=== PATIENT | female | born 1955 | race Caucasian/White ===

== ENCOUNTER 2018-03-09 08:45 | Observation (INO) ==
[2018-03-09] MEDS ORDERED: Nitroglycerin 0.4 MG TAB.SUBL SL ONE (09:01)
[2018-03-09] MEDS ORDERED: Aspirin 81 MG TAB.CHEW PO ONE (09:01)
--- NOTE | 2018-03-09 09:12 | Emergency Department Note ---
Disposition Clinical Impression: Unstable angina Disposition: Admitted As Inpatient Condition: Good Referrals: Miriam Medeiros MD [Primary Care Provider] - Forms: ED Satisfaction Letter Chest Pain HPI - General Chief Complaint: ED Chest Pain Stated Complaint: chest pain Time Seen by Provider: 03/09/18 08:57 Source: patient, family Limitations: no limitations Vital Signs Reviewed: Yes Nursing Notes Reviewed: Yes - History of Present Illness HPI Narrative: 63-year-old female presents menstrual for chest pain. Onset around 2 AM. Woke from sleep. Located to the left side of her chest that radiates around into her left arm. She states the pain radiates down her left arm. She also admits to some nausea. No vomiting. Slight shortness of breath. No diaphoresis. No history of coronary disease. No history of any stents. Rates her pain a 4 out of 10. She describes it as a consistent sharp pain. She is recently been treated in the last week for sinus infection with Augmentin. She denies any long travels in a car plane. Pt is on Xarelto for prior DVT in right leg. Severity scale (1-10): 4 - Related Data Home Medications Medication Instructions Recorded Confirmed Atorvastatin Calcium [Lipitor] 20 mg PO DAILY 08/31/15 01/14/18 Calcium Carbonate/Vitamin D3 1 each PO BID 08/31/15 01/14/18 [Calcium 600+D Softgel] Carvedilol [Coreg] 25 mg PO BID 08/31/15 01/14/18 Inulin/Chromium Picolinate [Fiber 2 each PO BID 08/31/15 01/14/18 Gummies] Polyethylene Glycol 3350 [MiraLAX] 17 gm PO DAILY PRN 08/31/15 01/14/18 Ranitidine HCl [Zantac] 150 mg PO BID PRN 01/22/16 01/14/18 DULoxetine [Cymbalta] 30 mg PO DAILY 10/01/16 01/14/18 Fluticasone Propionate [Flovent 110 mcg IN BID PRN 11/21/17 01/14/18 Hfa] Multivitamin 1 tab PO DAILY 11/21/17 01/14/18 Previous Rx's Medication Instructions Recorded Clindamycin [Cleocin] 150 mg PO Q6HR #7 capsule 11/21/17 OxyCODONE Immed Rel [Roxicodone 5 5 mg PO Q4HR PRN 5 Days #20 tablet 11/21/17 MG] Rivaroxaban [Xarelto] 20 mg PO DAILY #30 tablet 12/01/17 Allergies Allergy/AdvReac Type Severity Reaction Status Date / Time hydrocodone Allergy Rash Verified 01/14/18 14:48 tape AdvReac Blister Uncoded 01/14/18 14:48 All systems ED: reviewed and negative except as stated. Constitutional: Reports: as per HPI Eyes: Reports: as per HPI ENT ED: Reports: as per HPI Cardiovascular: Reports: chest pain Respiratory: Reports: as per HPI Gastrointestinal: Reports: as per HPI Genitourinary: Reports: as per HPI Musculoskeletal: Reports: as per HPI Integumentary: Reports: as per HPI Neurological: Reports: as per HPI Psychiatric: Reports: as per HPI Endocrine: Reports: as per HPI Hematological/Lymphatic: Reports: as per HPI Allergic/Immunologic: Reports: as per HPI Chest Pain PMH - Past Medical History Medical history: Reports: arthritis, fibromyalgia, GERD, hyperlipidemia, hypertension, other Surgical history: Reports: cholecystectomy, hip replacement, knee replacement, other Psychiatric history: Reports: no psych history - Social History Smoking Status: Never smoker Alcohol use: Reports: none Drug use: Reports: none Physical Exam HEENT: Head atraumatic normocephalic. Pharynx clear with no exudates. Oral mucosa moist. Uvula midline. TMs clear bilaterally. Trachea midline. No lymphadenopathy. Heart: Regular rate and rhythm. Normal S1 and S2. No gallops, rubs, or murmurs. Lungs: Clear to auscultation bilaterally. No evidence of any rhonchi wheezing or rales. Abdomen: Soft nontender nondistended. Positive bowel sounds. No peritoneal signs. Extremities: No evidence of cyanosis clubbing or edema. Neuro: Cranial nerves II through XII grossly intact. No focal motor or sensory deficits. Speech is clear. Skin: Normal color. dry. Psych: normal mentation. - General Limitations: no limitations General appearance: alert - Head Head exam: atraumatic, normocephalic - Eye Eye exam: Present: normal appearance Course Vital Signs Temperature 98.4 F 03/09/18 08:55 Pulse Rate 107 03/09/18 08:55 Respiratory Rate 16 03/09/18 08:55 Blood Pressure 135/91 11/12/18 08:55 O2 Sat by Pulse Oximetry 96 03/09/18 08:55 Temperature 98.4 F 03/09/18 08:55 Pulse Rate 104 03/09/18 09:20 Respiratory Rate 16 03/09/18 09:20 Blood Pressure 126/81 03/09/18 09:20 O2 Sat by Pulse Oximetry 95 03/09/18 09:20 Oxygen Delivery Oxygen Delivery Room Air Chest Pain - MDM Narrative Medical decision making narrative: Workup in the ER did not show any abnormalities. CT of the chest was also negative for any PE. Troponin negative. ekg nondiagnostic CP free after nitro. admit for obs - Medical Records Medical records reviewed: Yes I reviewed the patient's medical records. - Lab Data Lab results reviewed: Yes I reviewed the patient's lab results. Result diagrams: 03/09/18 09:09 03/09/18 09:09 Lab Results 03/09/18 03/09/18 03/09/18 Range/Units 09:09 09:09 09:09 WBC 5.7 (4.3-11.1) K/mcL RBC 4.38 (3.82-4.97) M/mcL Hgb 12.6 (11.5-15.4) g/dL Hct 39.3 (35.3-44.9) % MCV 89.7 (83.0-100.0) fL MCH 28.8 (28.0-33.3) pg MCHC 32.1 (31.6-35.5) g/dL RDW 13.4 (11.5-14.5) % Plt Count 213 (140-400) K/mcL MPV 9.9 (9.4-12.4) fL Immature Gran % 0.4 (0-4) % Seg Neutrophils % 71.7 % Lymphocytes % 13.0 % Monocytes % 10.5 % Eosinophils % 3.7 % Basophils % 0.7 % Neutrophils # 4.1 (1.6-8.9) K/mcL Lymphocytes # 0.7 (0.6-4.6) K/mcL Monocytes # 0.6 (0.0-1.3) K/mcL Eosinophils # 0.2 (0.0-0.6) K/mcL Basophils # 0.0 (0.0-0.2) K/mcL PT 14.1 H (9.4-12.1) Seconds INR 1.3 APTT 37.2 H (26.0-36.0) Seconds D-Dimer 1069 H (0-500) ng/mLFEU Sodium 140 (136-145) mEq/L Potassium 4.0 (3.5-5.1) mEq/L Chloride 107 (98-107) mEq/L Carbon Dioxide 24 (23-29) mEq/L BUN 8 (8-23) mg/dL Creatinine 0.65 (0.60-1.20) mg/dL Est GFR ( Amer) > 60 (> 60) Est GFR (Non-Af Amer) > 60 (> 60) BUN/Creatinine Ratio 12 (6-26) Glucose 114 H (70-105) mg/dL Calculated Osmolality 289 (280-300) Calcium 9.5 (8.6-10.3) mg/dL Troponin I < 0.03 (< 0.04) ng/mL - Radiology Data Radiology results reviewed: Yes I reviewed the patient's radiology results. - EKG Data EKG attestation: Yes I reviewed and interpreted this EKG. EKG results narrative: EKG shows a rate of 108. Sinus tachycardia. [place] deviation. [place] interval 166. QRS 95. QTC 433. Heart Score - Score History: Moderately Suspicious EKG: Non Specific repolarisation Disturbance Age: 45-65 Risk Factors: 1-2 risk factors Troponin: Less than normal limit HEART Score Total: 4 Critical Care Time Critical Care Time: No
[2018-03-09 09:27] LABS: Basophils % 0.7 %; Eosinophils # 0.2 K/mcL (0.0-0.6); Eosinophils % 3.7 %; Hematocrit 39.3 % (35.3-44.9); Hemoglobin 12.6 g/dL (11.5-15.4); Immature Granulocytes % 0.4 % (0-4); Lymphocytes # 0.7 K/mcL (0.6-4.6); Mean Corpuscular HGB Conc 32.1 g/dL (31.6-35.5); Mean Corpuscular Hemoglobin 28.8 pg (28.0-33.3); Mean Corpuscular Volume 89.7 fL (83.0-100.0); Mean Platelet Volume 9.9 fL (9.4-12.4); Monocytes # 0.6 K/mcL (0.0-1.3); Monocytes % 10.5 %; Neutrophils # 4.1 K/mcL (1.6-8.9); Platelet Count 213 K/mcL (140-400); Red Blood Count 4.38 M/mcL (3.82-4.97); Red Cell Distribution Width 13.4 % (11.5-14.5); Segmented Neutrophils % 71.7 %
[2018-03-09 09:37] LABS: INR 1.3; Prothrombin Time 14.1 Seconds (9.4-12.1)
[2018-03-09 09:39] LABS: Activated Partial Thrombo Time 37.2 Seconds (26.0-36.0)
[2018-03-09 09:49] LABS: Troponin I < 0.03 ng/mL (< 0.04)
[2018-03-09] MEDS ORDERED: Isovue-370 500 ML INFUS..BTL IV ONE (10:03)
[2018-03-09 10:15] LABS: BUN/Creatinine Ratio 12 (6-26); Blood Urea Nitrogen 8 mg/dL (8-23); Calcium 9.5 mg/dL (8.6-10.3); Carbon Dioxide 24 mEq/L (23-29); Chloride 107 mEq/L (98-107); Glucose 114 mg/dL (70-105); Osmolality,Calculated 289 (280-300); Sodium 140 mEq/L (136-145); eGFR For Non-African Americans > 60 (> 60)
[2018-03-09] MEDS ORDERED: Naloxone 0.4 MG/ML INJ IVP PRN (11:08)
--- NOTE | 2018-03-09 11:21 | Internal Med History&Physical ---
Date of Encounter: 03/09/18 Time of Encounter: 11:16 Internal Medicine - H&P: HPI Chief complaint: chest pain Admitted From: Home Plans for Post Hospital Care: Home History of present illness: Ms. Crandall is a 63 year old female with history of GERD, hypertension, hyperlipidemia presented to the emergency department with complaint of chest pain. Her pain started at 2 AM and woke her up from sleep, it was sharp in darrin ure lasted a few minutes and radiated to the left shoulder and left arm. She has never had pain like this before. She did nothing to alleviate the pain cannot recall aggravating factors. Pain is recurrent however now has pressure- like quality, 2 out of 10 in severity and relieved by the nitroglycerin that she was provided in the emergency department. She denies exertional chest pain, is able to complete her daily activities without ever experiencing chest pain or shortness of breath. She does have history of DVT xarelto and reports compliance to her medications. She denies fever, chills, palpitations, shortness of breath, nausea, vomiting, diarrhea, leg swelling, calf tenderness, heat or cold intolerance, LOC, syncope, headache, vision changes, loss of function in her extremities, PND or orthopnea. In the emergency department her EKG did not show any acute ST T changes, d-dimer was elevated and CTA of the chest performed ruled out pulmonary embolism and she was endorsed for further evaluation of her chest pain as her heart score was 3 Past Med Surg Social Fam HX - Past Medical History Medical history: arthritis, fibromyalgia, GERD, hyperlipidemia, hypertension, other Additional medical history: on xarelto for blood clot in leg- June Psychiatric history: no psych history - Past Surgical History Surgical History: cholecystectomy, hip replacement, knee replacement, other Additional surgical history: D&C. Tubal Ligation,tonsils,lap [place],egd,colonoscopy. right knee replacement - Social History Smoking Status: Never smoker Smokeless Tobacco Status: No Alcohol use: none Drug use: none - Family History Mother Adopted: No Family Member Ethnicity: Non- Living Status: Hx Family Cardiac Disorders: No Hx Family Respiratory Disorders: Yes Hx Family Cancer: No Hx Family Endocrine Disorder: No Hx Family Neuromuscular Disorders: No Hx Family Neurologic Disorders: No Hx Family HEENT Disorders: No Hx Family Autoimmune Disorders: No Internal Medicine - H&P: Meds Atorvastatin Calcium [Lipitor] 20 mg PO DAILY 08/31/15 [History] Calcium Carbonate/Vitamin D3 [Calcium 600+D Softgel] 1 each PO BID 08/31/15 [History] Carvedilol [Coreg] 25 mg PO BID 08/31/15 [History] Inulin/Chromium Picolinate [Fiber Gummies] 2 each PO BID 08/31/15 [History] Polyethylene Glycol 3350 [MiraLAX] 17 gm PO DAILY PRN 08/31/15 [History] Ranitidine HCl [Zantac] 150 mg PO BID PRN 01/22/16 [History] DULoxetine [Cymbalta] 30 mg PO DAILY 10/01/16 [History] Clindamycin [Cleocin] 150 mg PO Q6HR #7 capsule 11/21/17 [Rx] Fluticasone Propionate [Flovent Hfa] 110 mcg IN BID PRN 11/21/17 [History] Multivitamin 1 tab PO DAILY 11/21/17 [History] OxyCODONE Immed Rel [Roxicodone 5 MG] 5 mg PO Q4HR PRN 5 Days #20 tablet 11/21/17 [Rx] Rivaroxaban [Xarelto] 20 mg PO DAILY #30 tablet 12/01/17 [Rx] Allergy/AdvReac Type Severity Reaction Status Date / Time hydrocodone Allergy Rash Verified 01/14/18 14:48 tape AdvReac Blister Uncoded 01/14/18 14:48 All Systems PM: A 10-system review of systems was performed and is negative for pertinent findings except as documented above in the HPI. - Constitutional Vitals: Temp Pulse Resp BP Pulse Ox 98.4 F 104 16 136/89 95 03/09/18 08:55 03/09/18 11:01 03/09/18 11:01 03/09/18 11:01 03/09/18 11:01 Exam: General: Patient is alert, oriented, no acute distress, obese Head: atraumatic, normocephalic, Eye: normal appearance, PERRL, no scleral icterus, no conjunctival injection ENT: mucous membranes moist, normal external ear exam Neck: normal inspection, trachea midline, full ROM, no carotid bruits Chest: normal inspection, symmetric chest rise Respiratory: Good respiratory effort. Bilateral breath sounds are clear without wheezing, crackles, or rhonchi. Cardiovascular: Regular rate and rhythm. s1 and s2 No clicks, rubs, gallops, or murmors. Abdomen: Bowel sounds present normoactive x-4 quadrants. Abdomen is soft, nondistended. no Epigastric tenderness. No guarding or rebound. No organomegaly noted, obese musculoskeletal: Spontaneously moving all extremities. no edema, no calf tenderness Skin: warm, dry, intact. Neuro: Alert and oriented x4. Sensation light touch intact. Cranial nerves 2- 12 is intact. No focal deficit Psych: Patient's affect is normal Internal Med - H&P Results - Labs CBC & Chem 7: 03/09/18 09:09 03/09/18 09:09 Labs: Short CBC 03/09/18 Range/Units 09:09 WBC 5.7 (4.3-11.1) K/mcL Hgb 12.6 (11.5-15.4) g/dL Hct 39.3 (35.3-44.9) % Plt Count 213 (140-400) K/mcL Neutrophils # 4.1 (1.6-8.9) K/mcL BMP 03/09/18 09:09 Sodium 140 Potassium 4.0 Chloride 107 Carbon Dioxide 24 BUN 8 Creatinine 0.65 Glucose 114 H Calcium 9.5 Cardiac Enzymes 03/09/18 Range/Units 09:09 Troponin I < 0.03 (< 0.04) ng/mL - EKG Data -: EKG Interpreted by Myself (Sinus Tachycardic, [place] interval 166. QRS 95. QTC 433.) - EKG Data Prior EKG available for review: yes When compared to previous EKG: there is no significant change - Impressions ITS Impressions Chest X-Ray 03/09/18 09:01 IMPRESSION: 1. Stable chest x-ray with no active pulmonary disease. D/ / Maninder Ngo MD / Maninder Ngo MD Interpreting Provider: Maninder Ngo MD Chest CTA 03/09/18 10:03 IMPRESSION: No evidence of pulmonary embolism or acute aortic disease. Cardiomegaly but no pericardial disease. Ground-glass opacities which are nonspecific as well as right lower lobe atelectatic changes. D/ / 03/09/2018 10:55:59 Xenia Wynn MD / [facility] Interpreting Provider: Xenia Wynn MD - Assessment and plan (1) Chest pain, rule out acute myocardial infarction Current Visit: Yes Status: Acute Assessment and plan: Chest pain rule out ACS Elevated d-dimer 1069CTA the emergency department ruled out pulmonary embolism Cardiac monitoring Was loaded with aspirin 325 mg in the emergency department we will continue with aspirin 81 mg daily First troponin was negative in the emergency department we will follow serial troponins and EKGs every 6 hours Continue beta april, and statins TSH, A1c, lipid panel in the morning Stress test in the morning Echocardiogram Consider cardiology consult pending above results CTA 03/09-No evidence of pulmonary embolism or acute aortic disease. Cardiomegaly but no pericardial disease. Ground-glass opacities which are nonspecific as well as right lower lobe atelectatic changes. CXR: IMPRESSION: 1. Stable chest x-ray with no active pulmonary disease. (2) DVT (deep venous thrombosis) Current Visit: Yes Status: Acute Assessment and plan: right peroneal vein On Xarelto Qualifiers: DVT location: lower extremity Affected thrombotic vein of extremity: unspecified vein of extremity Chronicity: chronic Laterality: right Qualified Code(s): I82.501 - Chronic embolism and thrombosis of unspecified deep veins of right lower extremity (3) Hyperlipidemia Current Visit: Yes Status: Acute Assessment and plan: Continue home dose statin Lipid panel in the morning Qualifiers: Hyperlipidemia type: unspecified Qualified Code(s): E78.5 - Hyperlipidemia, unspecified (4) Gastroesophageal reflux disease Current Visit: No Status: Chronic Assessment and plan: Continue home medications Qualifiers: Esophagitis presence: esophagitis presence not specified Qualified Code(s): K21.9 - Gastro-esophageal reflux disease without esophagitis (5) HTN (hypertension) Current Visit: No Status: Chronic Assessment and plan: TTE home medications if not contraindicated Qualifiers: Hypertension type: essential hypertension Qualified Code(s): I10 - Essential (primary) hypertension (6) Morbidly obese Current Visit: Yes Status: Acute Assessment and plan: BMI 41 Nutrition consult Lipid panel in the morning - Time Spent With Patient Total time spent is greater than 50% in coordination of care (as documented) at patient's floor/unit and/or counseling patient:
[2018-03-09 15:32] LABS: Bilirubin,Urine Negative (Negative); Blood,Urine Negative (Negative); Clarity,Urine Clear (Clear); Color,Urine Yellow (Yellow); Glucose,Urine (UA) Normal (Normal); Ketones,Urine Negative (Negative); Leukocyte Esterase,Urine Negative (Negative); Nitrite,Urine Negative (Negative); Protein,Urine Negative (Neg-Trace); Specific Gravity,Urine > 1.030 (1.010-1.025); Urobilinogen,Urine Normal (Normal)
[2018-03-09] MEDS: *HR* Rivaroxaban 10 MG TABLET PO SCH (15:59)
[2018-03-09] MEDS: Acetaminophen 325 MG TABLET PO PRN (22:21)
[2018-03-10 05:33] LABS: Basophils % 0.9 %; Eosinophils # 0.2 K/mcL (0.0-0.6); Eosinophils % 4.3 %; Hematocrit 37.4 % (35.3-44.9); Immature Granulocytes % 0.2 % (0-4); Lymphocytes # 0.8 K/mcL (0.6-4.6); Lymphocytes % 17.2 %; Mean Corpuscular HGB Conc 32.1 g/dL (31.6-35.5); Mean Corpuscular Hemoglobin 29.1 pg (28.0-33.3); Mean Corpuscular Volume 90.8 fL (83.0-100.0); Mean Platelet Volume 10.5 fL (9.4-12.4); Monocytes # 0.6 K/mcL (0.0-1.3); Monocytes % 12.9 %; Platelet Count 206 K/mcL (140-400); Red Blood Count 4.12 M/mcL (3.82-4.97); Red Cell Distribution Width 13.8 % (11.5-14.5); Segmented Neutrophils % 64.5 %
[2018-03-10] MEDS ORDERED: Regadenoson 0.4 MG/5 ML SYRINGE IVP ONE (05:46)
[2018-03-10 06:42] LABS: BUN/Creatinine Ratio 15 (6-26); Blood Urea Nitrogen 9 mg/dL (8-23); Calcium 9.3 mg/dL (8.6-10.3); Carbon Dioxide 28 mEq/L (23-29); Chol/HDL Ratio 2.9 (0-4.9); Cholesterol 126 mg/dL (< 200); Glucose 100 mg/dL (70-105); HDL Cholesterol 44 mg/dL (40-59); LDL Cholesterol,Calculated 60 mg/dL (0-99); Magnesium 2.1 mg/dL (1.6-2.6); Phosphorous 3.6 mg/dL (2.7-4.5); Triglycerides 112 mg/dL (< 150); eGFR For Non-African Americans > 60 (> 60)
[2018-03-10 06:43] LABS: Chloride 107 mEq/L (98-107); Osmolality,Calculated 299 (280-300); Potassium 3.8 mEq/L (3.5-5.1); Sodium 145 mEq/L (136-145); Thyroid Stimulating Hormone 2.499 mcIU/mL (0.340-5.600)
[2018-03-10] MEDS: Cholecalciferol (D-3) 1,000 UNIT TABLET PO SCH (08:52)
[2018-03-10] MEDS: Aspirin 81 MG TAB.CHEW PO SCH (08:53)
[2018-03-10] MEDS: Acetaminophen 325 MG TABLET PO PRN ×2 (08:54→23:18)
[2018-03-10 09:13] LABS: Estimated Average Glucose 126 mg/dl
--- NOTE | 2018-03-10 15:59 | Internal Med Progress Note ---
Hospitalist Progress Note - Encounter Date of Encounter: 03/10/18 Time of Encounter: 15:53 - Subjective Interval History: Patient was seen and examined bedside denied any active chest pain now denied any shortness of breath - Exam Vitals: Temp Pulse Resp BP Pulse Ox 98.1 F 76 16 110/70 95 03/10/18 15:34 03/10/18 15:34 03/10/18 15:34 03/10/18 15:34 03/10/18 15:34 Exam: Gen: Alert, awake, Oriented to time,place and person Chest: Diminished breath sounds B/L, No wheezing, No crackles, No rales... Reproducible tenderness over chest wall region Heart: S1S2+ RRR No murmurs Abd: Soft, NT, BS +, No organomegaly Ext: No edema, pulses are palpable, No calf tenderness Neuro : Benign findings Skin: No rash. - Assessment and Plan (1) Chest pain, rule out acute myocardial infarction Current Visit: Yes Status: Acute Assessment and Plan: So far negative troponin x 3 chest pain seems to be atypical however with her age and multiple risk factors need to rule out ACS scheduled for 2 days stress test continue aspirin, beta april and statin (2) Gastroesophageal reflux disease Current Visit: No Status: Chronic Assessment and Plan: Continue home medications (3) HTN (hypertension) Current Visit: No Status: Chronic Assessment and Plan: Stable with current home medications (4) DVT (deep venous thrombosis) Current Visit: Yes Status: Acute Assessment and Plan: right peroneal vein On Xarelto (5) Morbidly obese Current Visit: Yes Status: Acute Assessment and Plan: BMI 41 Nutrition consult (6) Hyperlipidemia Current Visit: Yes Status: Acute Assessment and Plan: Continue home dose statin LDL 60 - Time Spent with Patient Total time spent is greater than 50% in coordination of care (as documented) at patient's floor/unit and/or counseling patient: Internal Medicine: Result - Labs CBC & Chem 7: 03/10/18 03:53 03/10/18 03:53 Labs: Short CBC 03/10/18 Range/Units 03:53 WBC 4.7 (4.3-11.1) K/mcL Hgb 12.0 (11.5-15.4) g/dL Hct 37.4 (35.3-44.9) % Plt Count 206 (140-400) K/mcL Neutrophils # 3.0 (1.6-8.9) K/mcL BMP 03/10/18 03:53 Sodium 145 Potassium 3.8 Chloride 107 Carbon Dioxide 28 BUN 9 Creatinine 0.62 Glucose 100 Calcium 9.3 Cardiac Enzymes 03/09/18 Range/Units 20:51 Troponin I < 0.03 (< 0.04) ng/mL - ABG Interpretation ABG results: PT/INR, D-dimer PT 14.1 Seconds (9.4-12.1) H 03/09/18 09:09 D-Dimer 1069 ng/mLFEU (0-500) H 03/09/18 09:09 - Impressions Impressions Echocardiogram 03/09/18 11:10 Impressions: LVEF 65%. Mild asymmetric basal septal hypertrophy. No LVOT obstruction. Mild left ventricular diastolic dysfunction. Normal right ventricular structure and function. No significant valvular dysfunction. No pulmonary hypertension. Left Ventricular Wall Motion: Rest Echo Findings All wall segments showed normal motion. Findings: Study Quality * Technically adequate exam. ECG Findings * Normal sinus rhythm. Left Ventricle * LVEF 65%. * Normal LV chamber size. * Mild asymmetric basal septal hypertrophy. No LVOT obstruction. * Mild left ventricular diastolic dysfunction. Right Ventricle * Normal right ventricular structure and function. Left Atrium * Normal left atrial size. Right Atrium * Normal right atrial size. Aortic Valve * No aortic regurgitation. * Trileaflet aortic valve. * No aortic stenosis. Mitral Valve * No mitral regurgitation. * Mildly thickened mitral valve leaflets. * No mitral stenosis. Tricuspid Valve * Tricuspid valve not well visualized. * No tricuspid regurgitation. * Estimated RA pressure is 8 mmHg. Pulmonic Valve * Pulmonic valve is not well visualized. * No pulmonic stenosis. * Trace pulmonic regurgitation. Pulmonary Artery * Pulmonary artery not well visualized. Aorta * Normally sized aortic root. Pericardium * There is no pericardial effusion present. Interatrial Septum * No evidence of PFO by color Doppler. IVC * The IVC is not dilated. * < 50% respiratory change. Consult Discharge Plan - Plan Referrals: Miriam Medeiros MD [Primary Care Provider] - 03/17/18 1:30 pm (2) Gastroesophageal reflux disease Qualifiers: Esophagitis presence: esophagitis presence not specified Qualified Code(s): K21.9 - Gastro-esophageal reflux disease without esophagitis (3) HTN (hypertension) Qualifiers: Hypertension type: essential hypertension Qualified Code(s): I10 - Essential (primary) hypertension (4) DVT (deep venous thrombosis) Qualifiers: DVT location: lower extremity Affected thrombotic vein of extremity: unspecified vein of extremity Chronicity: chronic Laterality: right Qualified Code(s): I82.501 - Chronic embolism and thrombosis of unspecified deep veins of right lower extremity (6) Hyperlipidemia Qualifiers: Hyperlipidemia type: unspecified Qualified Code(s): E78.5 - Hyperlipidemia, unspecified
[2018-03-10] MEDS: *HR* Rivaroxaban 10 MG TABLET PO SCH (16:16)
[2018-03-11] MEDS: Aspirin 81 MG TAB.CHEW PO SCH (07:29)
[2018-03-11] MEDS: Cholecalciferol (D-3) 1,000 UNIT TABLET PO SCH (07:29)
--- NOTE | 2018-03-11 12:22 | Cardiology Progress Note ---
Date of Encounter: 03/11/18 Time of Encounter: 12:18 Assessment and Plan (1) Chest pain Current Visit: Yes Status: Acute Chest pain concerning for unstable angina. 2 day nuclear stress test showed small sized and mild intensity reversible mid anterolateral perfusion defect (SDS=2) represents either minimal ischemia or technical artifact. No infarct on perfusion study. Stress LVEF >70%. Pharmacologic stress ECG non- diagnostic for ischemia. TTE showed normal EF. No high risk findings although patient describes typical ongoing chest pain symptoms. Recommend [facility] for further recommendations. R/B/A of [facility] reviewed with patient. She agrees to proceed. Qualifiers: Chest pain type: unspecified Qualified Code(s): R07.9 - Chest pain, unspecified Discussion w patient/family: The assessment and plan as outlined above was discussed with the patient and/or family members who expressed understanding and agreement. All questions were answered. Thank you for involving us in the care of your patient. Please call with any questions. Objective Vital Signs, Last 4 Hours Temp Pulse Resp BP Pulse Ox 03/11/18 11:21 98.4 F 91 16 146/85 95 03/11/18 10:48 98.1 F 78 20 127/79 94 Results 03/10/18 03:53 03/10/18 03:53 Consult Discharge Plan - Plan Referrals: Miriam Medeiros MD [Primary Care Provider] - 03/17/18 1:30 pm
--- NOTE | 2018-03-11 12:29 | Cardiology Consult Note ---
<Vance Guzman - Last Filed: 03/11/18 12:40> Date of Encounter: 03/11/18 Time of Encounter: 12:20 Assessment and Plan (1) Chest pain Current Visit: Yes Status: Acute Chest pain concerning for unstable angina. Initial work-up benign. Troponin negative. EKG shows SR with no acute ST changes. 2 day nuclear stress test showed small sized and mild intensity reversible mid anterolateral perfusion defect (SDS=2) represents either minimal ischemia or technical artifact. No infarct on perfusion study. Stress LVEF >70%. Pharmacologic stress ECG non- diagnostic for ischemia. TTE showed normal EF. No high risk findings although patient describes typical ongoing chest pain symptoms. Recommend [facility] for further recommendations. R/B/A of [facility] reviewed with patient. She agrees to proceed. Qualifiers: Chest pain type: unspecified Qualified Code(s): R07.9 - Chest pain, unspecified Discussion w patient/family: The assessment and plan as outlined above was discussed with the patient and/or family members who expressed understanding and agreement. All questions were answered. Thank you for involving us in the care of your patient. Please call with any questions. History of Present Illness Consult date: 03/11/18 Requesting physician: Jacinda Wiggins Consult reason: abnormal stress test, ongoing chest pain Chief complaint: Chest pain, LOPEZ History of present illness: Ms. Crandall is a 63 year old female with past medical history of HTN , HLD, thyroid nodule, pulmonary sarcoidosis, and obesity who presents with the c/o LOPEZ and chest pain for over one week. C/o dyspnea with exertion followed by chest pain. Symptoms improve with rest. Yesterday the chest pain woke her from her sleep. Today she continues to have chest discomfort. She saw her PCP and was treated for sinus infection with antibiotics one week ago with no improvement in her symptoms. Denies history of CAD. Stress test completed today and cardiology was consulted to evaluate further. Past Med Surg Social Fam HX - Past Medical History Medical history: arthritis, fibromyalgia, GERD, hyperlipidemia, hypertension, other Additional medical history: on xarelto for blood clot in leg- June Psychiatric history: no psych history - Past Surgical History Surgical History: cholecystectomy, hip replacement, knee replacement, other Additional surgical history: D&C. Tubal Ligation,tonsils,lap [place],egd,colonoscopy. right knee replacement x3, Left hip replacement x2 - Social History Smoking Status: Never smoker Smokeless Tobacco Status: No Alcohol use: none Drug use: none - Family History Mother Adopted: No Family Member Ethnicity: Non- Living Status: Hx Family Cardiac Disorders: No Hx Family Respiratory Disorders: Yes Hx Family Cancer: No Hx Family Endocrine Disorder: No Hx Family Neuromuscular Disorders: No Hx Family Neurologic Disorders: No Hx Family HEENT Disorders: No Hx Family Autoimmune Disorders: No - Additional Family History Additional family history: Mother- all siblings with [place] Medications and Allergies Atorvastatin Calcium [Lipitor] 20 mg PO DAILY 08/31/15 [History] Calcium Carbonate/Vitamin D3 [Calcium 600+D Softgel] 1 each PO BID 08/31/15 [History] Carvedilol [Coreg] 25 mg PO BID 08/31/15 [History] Inulin/Chromium Picolinate [Fiber Gummies] 2 each PO BID 08/31/15 [History] Polyethylene Glycol 3350 [MiraLAX] 17 gm PO DAILY PRN 08/31/15 [History] Multivitamin [One Daily Multivitamin] 1 tab PO DAILY #0 11/21/17 [History] Rivaroxaban [Xarelto] 20 mg PO DAILY #30 tablet 12/01/17 [Rx] Amoxicillin/Clavulanate [Augmentin] 1 tab PO Q12H 03/09/18 [History] Diclofenac Sodium 1 appl TP QID PRN 03/09/18 [History] Duloxetine HCl [Cymbalta] 60 mg PO DAILY 03/09/18 [History] Aspirin 81 mg PO DAILY #30 tab.chew 03/11/18 [Rx] Allergy/AdvReac Type Severity Reaction Status Date / Time hydrocodone Allergy Rash Verified 01/14/18 14:48 tape AdvReac Blister Uncoded 01/14/18 14:48 All Systems Review: The remainder of the systems were reviewed and are negative Physical Examination Vital Signs, Last 4 Hours Temp Pulse Resp BP Pulse Ox 03/11/18 11:21 98.4 F 91 16 146/85 95 03/11/18 10:48 98.1 F 78 20 127/79 94 General: Conversant, No Apparent Distress HEENT: Atraumatic, Normocephaly, Mucus Membranes Moist Neck: No JVD, Normal carotid pulses Cardiac: Reg Rate and Rhythm, Normal S1 and S2, No Murmur Lungs: Normal Breath Sounds, No Wheeze, Rales, Rhonchi Neuro: Alert and responsive, No focal deficits noted Abdomen: Soft, Non-Tender Skin: No rashes noted on visualized skin Musculoskeletal: No Chest Wall Tenderness Extremities: No Clubbing, No Cyanosis, No Edema, Normal Pulses Results 03/10/18 03:53 03/10/18 03:53 - Imaging and Cardiology Stress Test: report reviewed Echo: report reviewed - EKG Interpretation EKG results cardiology: personally reviewed Consult Discharge Plan - Plan Referrals: Cardiology Cathie [Provider Group] (The office will contact you at home with an appointment. ) Mriiam Medeiros MD [Primary Care Provider] - 03/17/18 1:30 pm Prescriptions: Aspirin 81 mg PO DAILY #30 tab.chew <Ferny Person - Last Filed: 03/11/18 15:35> Date of Encounter: 03/11/18 - Attending Attestation I have personally performed a face to face evaluation on this patient. I have reviewed and agree with the documented findings and care plan as documented by the ELECTRICAL PROSPECTING OBSERVER. History and Exam by me shows: 63-year-old female presenting with atypical chest pain, found to have minimal ischemia versus artifact on myocardial perfusion imaging. I agree with coronary angiogram to rule out ischemic heart disease. Risks and benefits and alternative options were explained to the patient and she wished to proceed. Further recommendations to follow Ferny Batista MD Assessment and Plan Discussion w patient/family: The assessment and plan as outlined above was discussed with the patient and/or family members who expressed understanding and agreement. All questions were answered. Thank you for involving us in the care of your patient. Please call with any questions. History of Present Illness History of present illness: Ms. Crandall is a 63 year old female All Systems Review: The remainder of the systems were reviewed and are negative Physical Examination Vital Signs, Last 4 Hours Pulse Resp BP Pulse Ox 03/11/18 13:55 78 16 113/73 94 Results 03/10/18 03:53 03/10/18 03:53
[2018-03-11] MEDS ORDERED: 0.9 % Sodium Chloride 1,000 ML ONE (12:48)
[2018-03-11] MEDS ORDERED: Nitroglycerin 1,000 MCG/10 ML VIAL IV ONE (12:49)
[2018-03-11] MEDS ORDERED: *HR* Heparin 10,000 UNIT/10 ML VIAL ONE (12:49)
[2018-03-11] MEDS ORDERED: ISOVUE-370 200 ML INFUS..BTL ONE (12:49)
[2018-03-11] MEDS ORDERED: Heparin 1,000 UNITS/500 mL 500 ML ONE (12:49)
[2018-03-11] MEDS ORDERED: *HR* FentaNYL (PF) 100 MCG/2 ML VIAL ONE (13:03)
[2018-03-11] MEDS ORDERED: *HR* Midazolam HCl 2 MG/2 ML VIAL ONE (13:03)
--- NOTE | 2018-03-11 13:18 | Pre-Sedation Evaluation ---
Pre-sedation evaluation - Pre-sedation checklist Date of procedure: 03/11/18 Procedure: [facility] Recent Vitals: Last Vital Signs Temp 98.4 F 03/11/18 11:21 Pulse 91 03/11/18 11:21 Resp 16 03/11/18 11:21 BP 146/85 03/11/18 11:21 Pulse Ox 95 03/11/18 11:21 H&P (including ROS) documented in medical record: Yes Previous reaction to sedatives/anesthetics: No Dietary Status: No solid food in preceding 4 hrs and no liquid in preceding 2 hrs Dentition: No loose teeth or bridges ASA Classification *see protocol: CLASS II-Mild systemic disease Cardiac Registry (Cardio Only) - Functional Capacity Functional Capacity: >=4 METS with symptoms - Clincal Frailty Scale Clinical Frailty Scale: Managing Well
--- NOTE | 2018-03-11 13:46 | Invasive Diagnostic Lab Proc ---
Name: Treasure Crandall Date of Study: 03/11/2018 Date: 1955 Ht: 59.8in Medical Record#: [id number] Age: 63 Wt: 209.44lb Gender: Female BSA: 1.9 Order #: [id number] BMI: 41.12 Physicians Procedure Physician: Jose L Payan MD Referring MD: Referring MD: Staff Name Position Time In [facility], Abigail RT (R) Monitor 01:01 PM Daniel Cramer RN Hospital Pharmacist 01:02 PM Jordon Whittaker RT (R) Scrub 01:02 PM Indications Indication Abnormal Test - Stress Procedures Performed Procedure L HRT ARTERY/VENTRICLE ANGIO Pre-Procedure Checklist Informed consent is complete signed and on chart. H&P is on chart. ID band is on and ID verified with patient. Patient NPO for procedure The procedure was described for the patient and questions were answered. Blood Pressure: 146/85 ECG is on chart. Plan of Care Patient will tolerate the procedure without complications. Adequate level of comfort will be maintained. Hemodynamics will remain stable Patient will recover from procedure without complications. Respiratory function will be maintained. Cardiac rhythm will remain stable. Patient temperature will be maintained. Patient and/or family have verbalized understanding of the procedure. Patient Education Chief Complaint/Reason for Test: Cardiac Cath Developmental Category: Geriatric (65+ years) Developmentally Appropriate for Age: Yes Learning Barriers: None Education Needs: Procedure Education Method: Verbal Information Taught: Cardiac Cath Educational Evaluation: Able to repeat information Intravenous Access Time IV Size Location DC'd Fluid/Drip Rate Units RN 20g 1 /" Patent On Arrival Rt Antecubital 0.9NaCl 50 ml/hr Daniel Cramer RN Allergies tape hydrocodone Vital Signs Time BP (mmHg) HR (bpm) O2 Sat. RR (bpm) LOC 146 / 85 91 95 % 16 5 = Fully awake and oriented or at pre-proc level 01:11 PM / % 5 = Fully awake and oriented or at pre-proc level 01:11 PM / % 4 = Oriented but drowsy 01:07 PM 136 / 84 79 96 % 29 01:12 PM 134 / 82 83 95 % 18 01:17 PM 131 / 79 77 97 % 22 01:22 PM 135 / 88 77 98 % 21 01:27 PM 133 / 72 83 96 % 15 01:32 PM 142 / 86 68 97 % 18 Procedural Medications Time Medication Dose Units Method Given By 01:10 PM Oxygen 2 L/min nasal cannula Daniel Cramer RN 01:10 PM Versed 1 mg Intravenous Daniel Cramer RN 01:11 PM Fentanyl 50 mcg Intravenous Daniel Cramer RN 01:21 PM Lidocaine 2% 10 ml Subcutaneous Jose L Payan MD 01:21 PM Versed 0.5 mg Intravenous Daniel Cramer RN 01:21 PM Fentanyl 25 mcg Intravenous Daniel Cramer RN ASA Classification: CLASS II- Mild systemic disease (i.e. well-controlled diabetes, hypertension, asthma, cigarette smoking) Parish Score Preprocedure Postprocedure Activity 2- Moves 4 extremities sustained head lift Activity 2- Moves 4 extremities sustained head lift Circulation 2- SBP +/= 20 points of pre-anesthetic level Circulation 2- SBP +/= 20 points of pre-anesthetic level Consciousness 2- Awake and alert oriented x 3 Consciousness 2- Awake and alert oriented x 3 O2 Saturation 2- Able to maintain O2 satruation of 92% on room air O2 Saturation 2- Able to maintain O2 satruation of 92% on room air Respiratory 2- Able to deep breathe and cough well Respiratory 2- Able to deep breathe and cough well Total Score 10 Total Score 10 Contrast Agent: Isovue Diagnostic Contrast: 36 ml Total Contrast: 36 ml Fluoro Dose: 3912 mGy Procedure Log Time Note Enter By 12:42 PM CathStat 01:01 PM Pt arrived to lab rn 2 at 13:01 tsites 01:01 PM Abigali Bonilla RT (R) Position: Monitor Time in: 13: tsites 01:02 PM Daniel Cramer RN Position: Hospital Pharmacist Time in: 13:02 tsites 01:02 PM Jordon Whittaker RT (R) Position: Scrub Time in: 13:02 tsites 01:02 PM Patient charges- Angio tray pack, Navilyst 3mm J, Pulse Oximetry and ACIST tubing and transducer tsites 01:02 PM Case Delayed No tsites 01:02 PM Physician arrived 13:02 tsites 01:02 PM Meet and greet completed tsites 01:02 PM Sign in performed according to hospital policy. Informed consent was obtained. tsites 01:02 PM Procedure start 13:02 tsites 01:06 PM Vitals capture started with the following parameters, Patient=Adult, Interval=5 min, Initial Gmamefxp=509 mmHg, Deflation Rate=5 mmHg, Cuff placed on Right Arm 01:07 PM HR=79 bpm, TIYN=606/84 mmhg, SpO2=96 %, Resp=29 B/min 01:08 PM Recorded ECG: HR=75 Condition=Condition 1 01:10 PM Time: 13:10 Oxygen on at 2 L/min per nasal cannula by Daniel Cramer RN ites : PM Time: 13:10 Versed 1 mg Intravenous Given by Daniel Cramer RN PM Time: 13:11 Fentanyl 50 mcg Intravenous Given by Daniel Cramer RN ites : PM Time: 13:11 Patient comfortable and pain free: Yes PM Time: 13:11LOC: 5 = Fully awake and oriented or at pre-proc level tsites : PM Clinical Presentation: Unstable angina tsites : Pressure channel 1 zeroed. 01:12 PM HR=83 bpm, VKMO=066/82 mmhg, SpO2=95.0 %, Resp=18 B/min 01:17 PM HR=77 bpm, UDQO=955/79 mmhg, SpO2=97.0 %, Resp=22 B/min 01:20 PM Time out was performed according to hospital policy. Conscious sedation and anesthesia was achieved (see medication log with in this report above) tsites : PM Procedure start 13:20 : PM Time: 13:21 10 ml Lidocaine 2% to right groin Subcutaneous Given by Jose L Payan MD PM Time: 13:21 Versed 0.5 mg Intravenous Given by Daniel Cramer RN PM Time: 13:21 Fentanyl 25 mcg Intravenous Given by Daniel Cramer RN : PM Micro-Introducer Kit utilized for sheath placement tsites : PM Access obtained by percutaneous puncture. 4Fr 10cm Micro kit sheath placed in right Femoral artery. [id number] tsites : PM HR=77 bpm, CWGE=750/88 mmhg, SpO2=98.0 %, Resp=21 B/min : PM 3cc of contrast injected tsites : PM Sheath exchanged for a 6 Fr 11 cm Cordis Magdalena sheath [id number] ites : PM 5Fr FR 4 catheter inserted over the wire DNC tsites : PM 0.035 145cm Navilyst 3mmJ wire [id number] tsites : PM RCA angiography performed in multiple views. tsites : PM wire reinserted catheter removed tsites : PM 5Fr FL 4 catheter inserted over the wire [facility] tsites : PM LCA angiography performed in multiple views. tsites : PM Recorded Pressure: Ao, HR=84, Condition=Condition 1 (Aorta) Ao 86/66/75 01: PM Time: 13:11 Patient comfortable and pain free: Yes tsites : PM Time: 13:11LOC: 4 = Oriented but drowsy tsites : PM wire reinserted catheter removed tsites : PM 5Fr Pigtail catheter inserted over the wire [facility] tsites : PM Catheter crossed the aortic valve and was selectively placed in the left ventricle. Pressures recorded on pullback for left heart catheterization. tsites : PM HR=83 bpm, VPTX=461/72 mmhg, SpO2=96.0 %, Resp=15 B/min 01:28 PM Recorded Pressure: LV, HR=79, Condition=Condition 1 (Left Ventricle) LV 100/13/14 01:28 PM Recorded Pressure: LV, Ao, HR=87, Condition=Condition 1 (Left Ventricle) LV 97/31/12, (Aorta) Ao 107/69/87 01:28 PM wire reinserted catheter removed tsites : PM Procedure completed at 13:28 03/11/2018 tsites : PM Sign out completed: Radiation Dose 362 mGy, 3912 cGy/cm2 Fluoro Time: Isovue 370 - 200ml contrast 36 ml given by Jose L Payan MD. Complications: None. 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 Cardiac Rehab Consult needed: NoConfirmed administered medications: Yes tsites : PM Isovue 370 - 200ml,1 Bottle(s) used. tsites : PM Arterial sheath pulled, Angio-seal closure device used and was Successful [id number] S/N. tsites : PM Estimated Blood Loss: minimal tsites : PM Post ECG NSR tsites : PM Post Blood Pressure 133/72 tsites : PM 13:29 Post Pulses Bilateral DP & PT 2+ tsites 01:30 PM Information taught Cardiac Cath and Angioseal tsites 01:30 PM Education needs Procedure, Plan of Care, and Responsibilities of Patient in Care tsites 01:30 PM Learning barriers :None tsites 01:30 PM Education Methods Verbal tsites 01:30 PM Education evaluation Able to repeat information tsites 01:30 PM Site status No bleeding/hematoma - Rt Groin as reported by Jordon Whittaker RT (R) at 13:30 tsites 01:30 PM Opsite applied tsites 01:30 PM Delay to floor No tsites 01:30 PM Patient out of room: 13:30 tsites 01:30 PM Family placed in consult room. tsites 01:30 PM Report given to stephanie YANEZ Pt taken to 3B Room #13. 13:30 tsites 01:32 PM HR=68 bpm, PSPE=880/86 mmhg, SpO2=97.0 %, Resp=18 B/min Complications Complication None Hemodynamics Pressures Site Systolic/A Wave Diastolic/V Wave Mean AO 86 66 75 LV 100 13 14 LV 97 31 12 AO 107 69 87 Post Procedure Information Blood Pressure: 133/72 mmHg Rhythm: NSR Post procedural instructions were given Closure Device Time Device Success/Fail 03/11/2018 1:32:00 PM Angio-Seal VIP Successful Site Checks Time Location Status Staff Sheath In? Note 01:30 PM Rt Groin No bleeding/hematoma Jordon Whittaker RT (R) Pulses Time Site Pre-Procedure Post-Procedure Note Bilateral DP & PT 1+ 1:29:00 PM Bilateral DP & PT 2+ Updated by Abigail Bonilla RT (R) on 03/11/2018 1:36:04 PM Abigail Bonilla RT electronically signed on 03/11/2018 1:36:29 PM with status of Final
--- NOTE | 2018-03-11 14:39 | Discharge Summary ---
- NOTES TO OUTPATIENT PROVIDER Notes to Outpatient Provider: Follow up with PCP in one week. follow-up with the cardiology in 1-2 weeks Orders not resulted at time of discharge: Pending orders 03/10/18 07:00 NM mary grace perf SPECT multi [NM] Routine 03/11/18 12:16 CL Cardiac Catheterization [CL] Routine Date of Encounter: 03/11/18 Time of Encounter: 14:35 - Discharge Diagnosis (1) Chest pain, rule out acute myocardial infarction Priority: Primary Status: Acute (2) Gastroesophageal reflux disease Priority: Secondary Status: Chronic Qualifiers: Esophagitis presence: esophagitis presence not specified Qualified Code(s): K21.9 - Gastro-esophageal reflux disease without esophagitis (3) HTN (hypertension) Priority: Secondary Status: Chronic Qualifiers: Hypertension type: essential hypertension Qualified Code(s): I10 - Essential (primary) hypertension (4) DVT (deep venous thrombosis) Priority: Secondary Status: Acute Qualifiers: DVT location: lower extremity Affected thrombotic vein of extremity: unspecified vein of extremity Chronicity: chronic Laterality: right Qualified Code(s): I82.501 - Chronic embolism and thrombosis of unspecified deep veins of right lower extremity (5) Morbidly obese Priority: Secondary Status: Acute (6) Hyperlipidemia Priority: Secondary Status: Acute Qualifiers: Hyperlipidemia type: unspecified Qualified Code(s): E78.5 - Hyperlipidemia, unspecified Hospital course: Ms. Crandall is a 63 year old female with history of GERD, hypertension, hy perlipidemia presented to the emergency department with complaint of chest pain. She was admitted in the hospital and placed her on cardiac rehabilitation program director. Her serial troponin x 3 came back as negative. EKG dit not show any acute ischemic changes. CTA of the chest negative for PE. She did have 2 days nuclear stress test which showed small sized and mild intensity reversible mid sakshi lateral perfusion defect .Pt was evaluated by cardiology who did C today which did not show any obstruction. So will d/c her home in stable condition today. - Time Spent with Patient Total time spent providing and/or coordinating discharge services: - Discharge Medications Prescriptions: Aspirin 81 mg PO DAILY #30 tab.chew Home Medications: Atorvastatin Calcium [Lipitor] 20 mg PO DAILY 08/31/15 [History] Calcium Carbonate/Vitamin D3 [Calcium 600+D Softgel] 1 each PO BID 08/31/15 [History] Carvedilol [Coreg] 25 mg PO BID 08/31/15 [History] Inulin/Chromium Picolinate [Fiber Gummies] 2 each PO BID 08/31/15 [History] Polyethylene Glycol 3350 [MiraLAX] 17 gm PO DAILY PRN 08/31/15 [History] Multivitamin [One Daily Multivitamin] 1 tab PO DAILY #0 11/21/17 [History] Rivaroxaban [Xarelto] 20 mg PO DAILY #30 tablet 12/01/17 [Rx] Amoxicillin/Clavulanate [Augmentin] 1 tab PO Q12H 03/09/18 [History] Diclofenac Sodium 1 appl TP QID PRN 03/09/18 [History] Duloxetine HCl [Cymbalta] 60 mg PO DAILY 03/09/18 [History] Aspirin 81 mg PO DAILY #30 tab.chew 03/11/18 [Rx] Allergies/Adverse Reactions: Allergy/AdvReac Type Severity Reaction Status Date / Time hydrocodone Allergy Rash Verified 01/14/18 14:48 tape AdvReac Blister Uncoded 01/14/18 14:48 Date of admission: 03/09/18 11:13 Primary care physician: Miriam Medeiros MD Consults: 03/11/18 10:52 Consult to Cardiology [CONS] Routine Comment: Consulting Provider: Jane Brand Reason for Consult: abnormal stress test Time Notified: 10:52 Call Completed: Yes - Constitutional Vitals: Temp Pulse Resp BP Pulse Ox 98.4 F 78 16 113/73 94 03/11/18 11:21 03/11/18 13:55 03/11/18 13:55 03/11/18 13:55 03/11/18 13:55 General appearance: Present: A&O X 3 Exam: Gen: Alert, awake, Oriented to time,place and person Chest: Diminished breath sounds B/L, No wheezing, No crackles, No rales Heart: S1S2+ RRR No murmurs Abd: Soft, NT, BS +, No organomegaly Ext: No edema, pulses are palpable, No calf tenderness Neuro : Benign findings Skin: No rash. - Patient Status Disposition: Home, Self-Care Condition: Good Overall status at discharge: patient is back to baseline - Discharge Instructions Follow Up With: Cardiology Cathie [Provider Group] (The office will contact you at home with an appointment. ) Miriam Medeiros MD [Primary Care Provider] - 03/17/18 1:30 pm - Diet and Activity Activity: increase activity as tolerated Diet: low salt diet
[2018-03-11 16:54] VITALS: BP 114/73
--- NOTE | 2018-03-11 17:44 | Electrocardiograph Report ---
[employer] Test Date: 2018-03-09 Pat Name: Treasure Crandall Department: [id number] Room: 3B13 Gender: F Garnisher: : 1955 Requested By: Anand Alvarez Order Number: [id number] Reading MD: Oscar Elder Measurements Intervals Maxwell Rate: 108 P: 33 AR: 166 QRS: -28 QRSD: 95 T: 6 QT: 323 QTc: 433 Interpretive Statements Sinus tachycardia Borderline left axis deviation Abnormal R-wave progression, late transition Borderline T wave abnormalities Electronically Signed On 03-11-2018 17:42:41 EST by Oscar Elder
== END 2018-03-11 17:32 | disposition home or self-care (01) ==
LOC: 3BNU 08:45 → EMEROOARM 08:45 → 3BNU 11:52
PROVIDERS: ADMIT Internal Medicine; ATTEND Internal Medicine